=== PATIENT | female | born 1980 | race Caucasian/White ===

== ENCOUNTER 2016-06-24 07:56 | Emergency (ER) | payer OTHER ==
[2016-06-24 08:02] VITALS: BP 121/72; PULSE 95; RESP 19; TEMP 97.8; O2SAT 95
--- NOTE | 2016-06-24 08:12 | EDPHY ---
H & P Stated Complaint: Cough, fever, HERNANDEZ x 4 days Time Seen by Provider: 06/24/16 08:11 HPI/ROS: CHIEF COMPLAINT: Fever, cough, myalgias HISTORY OF PRESENT ILLNESS: The patient presents to the ED with a 2 day history of progressive fever, cough and myalgias. The patient reports a sore throat. She did have nausea and vomiting yesterday. The patient did not get a flu shot this year. The patient denies significant past medical history. She denies any history of diabetes, asthma or immunosuppressive condition. The patient reports her symptoms are moderate in nature REVIEW OF SYSTEMS: A comprehensive 10 point review of systems is otherwise negative aside from elements mentioned in the history of present illness. Source: Patient - Personal History LMP (Females 10-55): 8-14 Days Ago Current Tetanus/Diphtheria Vaccine: Yes Current Tetanus Diphtheria and Acellular Pertussis (TDAP): Yes - Medical/Surgical History Hx Asthma: No Hx Chronic Respiratory Disease: No Hx Diabetes: No Hx Cardiac Disease: No Hx Renal Disease: No Hx Cirrhosis: No Hx Alcoholism: No Hx HIV/AIDS: No Hx Splenectomy or Spleen Trauma: No Other PMH: denies - Social History Smoking Status: Never smoked - Physical Exam Exam: General Appearance: [Alert, no distress] Eyes: [Pupils equal and round no pallor or injection] ENT, Mouth: Minimal pharyngeal erythema Respiratory: [There are no retractions, lungs are clear to auscultation] Cardiovascular: [Regular rate and rhythm] Gastrointestinal: [Abdomen is soft and nontender, no masses, bowel sounds normal] Neurological: [A&O, normal motor function, normal sensory exam, normal cranial nerves] Skin: [Warm and dry, no rashes] Musculoskeletal: [Neck is supple nontender] Extremities: [symmetrical, full range of motion] Constitutional: Initial Vital Signs Temperature (C) 36.6 C 06/24/16 07:59 Heart Rate 95 06/24/16 07:59 Respiratory Rate 19 06/24/16 07:59 Blood Pressure 121/72 H 06/24/16 07:59 O2 Sat (%) 95 06/24/16 07:59 O2 Delivery Mode Room Air Allergies/Adverse Reactions: lamotrigine [From Lamictal] Allergy (Verified 06/14/14 13:56) Home Medications: Medication Instructions Recorded Albuterol [Ventolin Hfa Inhaler] 2 puffs IH QID PRN #1 mdi 06/24/16 Hydrocodone/APAP 5/325 [[place] 1 - 2 each PO Q6 PRN #20 tab 06/24/16 5/325] Ondansetron Odt [Zofran Odt] 4 mg PO Q4PRN PRN #20 tab 06/24/16 Oseltamivir Phosphate [Tamiflu] 75 mg PO BID #10 cap 06/24/16 Medical Decision Making ED Course/Re-evaluation: The patient presents to the ED with a flu-like syndrome. The patient is well- appearing in the ED without evidence of meningitis. Clinically she has no evidence of pneumonia. The patient will be treated presumptively for influenza with Tamiflu, albuterol, Zofran and Maribel as needed for pain. I have instructed the patient to return to the emergency department for any increasing respiratory difficulty, intractable nausea or vomiting, worsening pain or other concerns. Differential Diagnosis: Differential diagnosis considered includes influenza, viral syndrome, otitis media, pneumonia Departure - Departure Disposition: Home, Routine, Self-Care Clinical Impression: Influenza Condition: Good Instructions: Influenza (ED) Additional Instructions: 1. Please take Tamiflu as directed for next 5 days. 2. Albuterol inhaler every 4 hours as needed for cough. 3. Zofran as needed for nausea. 4. Maribel as needed for severe pain 5. Take Ibuprofen or Motrin 600 mg by mouth three times a day. 6. Please return to the ED for markedly worsening symptoms, difficulty breathing , intractable vomiting, worsening pain or headache. Referrals: LIZ ROMO [Primary Care Provider] - As per Instructions
== END 2016-06-24 08:27 | disposition home or self-care (01) ==
DX: J11.1 Influenza due to unidentified influenza virus with other respiratory manifestations (principal)

== ENCOUNTER → 2017-03-03 | Outpatient (CLI) | payer OTHER | LOC: FIMAGING 08:14 | PROVIDERS: ATTEND Internal Medicine | DX: Z12.31 Encounter for screening mammogram for malignant neoplasm of breast (principal); Z80.3 Family history of malignant neoplasm of breast | CPT/HCPCS: G0202 ==

== ENCOUNTER 2018-01-26 17:42 | Emergency (ER) | payer OTHER ==
--- NOTE | 2018-01-26 17:57 | EDPHY ---
H & P Stated Complaint: Hit head 9H [employer], no LOC, stitched, shakey/photophobia Source: Patient Exam Limitations: No limitations - Personal History Current Tetanus/Diphtheria Vaccine: Yes - Medical/Surgical History Hx Asthma: No Hx Chronic Respiratory Disease: No Hx Diabetes: No Hx Cardiac Disease: No Hx Renal Disease: No Hx Cirrhosis: No Hx Alcoholism: No Hx HIV/AIDS: No Hx Splenectomy or Spleen Trauma: No Other PMH: denies - Social History Smoking Status: Never smoked Time Seen by Provider: 01/26/18 17:56 HPI/ROS: HPI: This is a 37-year-old female who presents with Chief Complaint: Hit head 9H [employer], no LOC, stitched, shakey/photophobia Location: Head Quality: Injury Duration: 9 hr prior to arrival Signs and Symptoms: no fever, no nausea, no vomiting, no photophobia, no noise sensitivity, no neck stiffness, no ear pain, no tinnitus, no nasal congestion, no sinus pressure, no weakness, no radiation, no aura Timing: Gradual onset Severity: Moderate Context: Patient reports that her and her are building a new house and they were at the job site this morning when she accidentally ran into an iron pulled that was sticking out of the ground. She sustained a laceration to her left eyebrow that was repaired by a neighbor who is a plastic surgeon. Over several hours she started to slowly develop light sensitivity and a by temporal headache that is nonradiating in nature and described as 6/10. 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 She believes that she may have sustained a concussion and she is concerned she is traveling to [place] on vacation tomorrow. She does have a history of mild concussion in the past. Does not take any blood thinners. Denies loss of consciousness, nausea, vomiting, amnesia, dizziness. Modifying Factors: She has not taking any [id number] pain medications for the headache Comment: ROS: A comprehensive 10 system review of systems is otherwise negative aside from elements mentioned in the history of present illness. MEDICAL/SURGICAL/SOCIAL HISTORY: Medical history: Generally healthy. Does not take any regular medications. Surgical history: Denies Social history: Never smoked. . Family history noncontributory. CONSTITUTIONAL: Extremely polite and cooperative adult white female, awake and alert, no obvious distress HEENT: Band-Aid present over left eyebrow where sutures placed prior to arrival and normocephalic, PERRL, EOMI. Nares patent; no rhinorrhea; no nasal mucosal edema. Tympanic membranes clear. Oropharynx clear, no exudate and moist pink mucosa. Airway patent. No lymphadenopathy. No meningismus. Cardiovascular: Normal S1/S2, regular rate, regular rhythm, without murmur rub or gallop. PULMONARY/CHEST: Symmetrical and nontender. Clear to auscultation bilaterally. Good air movement. No accessory muscle usage. ABDOMEN: Soft, nondistended, nontender, no rebound, no guarding, no peritoneal signs, no masses or organomegaly. No CVAT. EXTREMITIES: 2/2 pulses, strength 5/5, no deformities, no clubbing, no cyanosis or edema. NEUROLOGICAL: no focal neuro deficits. GCS 15. No nystagmus. SKIN: Warm and dry, no erythema. no rash. Good capillary refill. (Kori Jolly) Constitutional: Initial Vital Signs Temperature (C) 36.5 C 01/26/18 17:52 Heart Rate 82 01/26/18 17:52 Respiratory Rate 16 01/26/18 17:52 Blood Pressure 125/80 H 01/26/18 17:52 O2 Sat (%) 100 01/26/18 17:52 O2 Delivery Mode Room Air Allergies/Adverse Reactions: lamotrigine [From Lamictal] Allergy (Unverified 01/26/18 17:52) Home Medications: Medication Instructions Recorded Albuterol [Ventolin Hfa Inhaler] 2 puffs IH QID PRN #1 mdi 06/24/16 Hydrocodone/APAP 5/325 [[place] 1 - 2 each PO Q6 PRN #20 tab 06/24/16 5/325] Ondansetron Odt [Zofran Odt] 4 mg PO Q4PRN PRN #20 tab 06/24/16 Oseltamivir Phosphate [Tamiflu] 75 mg PO BID #10 cap 06/24/16 Azithromycin [Zithromax] 250 mg PO DAILY #6 tab 01/26/18 Ondansetron Odt [Zofran Odt 4 mg 4 mg PO Q4 PRN #12 tab 01/26/18 (*)] Medical Decision Making ED Course/Re-evaluation: Vital signs reviewed and stable upon arrival. Patient is extremely concerned and is requesting a head CT despite nexus protocol not require head CT imaging. Head CT ordered due to patient insistence. Patient given Percocet and Zofran. Patient is exhibiting signs of a concussion. She was referred to the concussion Clinic and given concussion precautions both verbally and written. 1825: Called by radiologist, Dr. Coley, who advised head CT imaging shows no acute intracranial process. + acute maxillary sinusitis. Prescription for Zithromax given patient reports that she has a prescription for Flonase at home already. Patient politely declined prescription for Percocet. This patient was seen under the supervision of my secondary supervising physician. I evaluated care for this patient independently. Discussed this patient with Dr. Diaz. (Kori Jolly) I did not see this patient while she was in the emergency department. However her care was discussed with the PA while the patient was in the department. I agree with treatment plan and management (Dennis Diaz) Differential Diagnosis: Head injury including but not limited to concussion, skull fracture, intraparenchymal contusion, subarachnoid, subdural and epidural hematoma. (Kori Jolly) - Data Points Medications Given: Discontinued Medications Ondansetron HCl (Zofran Odt) 4 mg PO EDNOW ONE Stop: 01/26/18 19:02 Last Admin: 01/26/18 19:04 Dose: 4 mg Departure - Departure Disposition: Home, Routine, Self-Care Clinical Impression: Closed head injury without loss of consciousness, Concussion, Maxillary sinusitis, acute Condition: Good Instructions: Sinusitis (ED), Concussion (ED) Additional Instructions: Please observe concussion precautions. 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 Please follow-up with Dr. Lowe in the concussion Clinic. Take Tylenol 650 mg every 4 hours and/or Ibuprofen 600 mg every 8 hours with food as needed for pain/headache. Take Zofran 1 tab every 4-6 hours as needed for nausea, vomiting. Take Azithromycin as directed until complete. Do not skip a dose. Use Flonase as needed for nasal congestion. Return to the ER immediately if you have progressive headaches, neurologic deficits, gait abnormality, visual disturbance, slurred speech, or any other symptom that concerns you. Referrals: Jordyn Harper MD [Primary Care Provider] - As per Instructions Joy Lowe MD [Medical Doctor] - As per Instructions Prescriptions: Azithromycin [Zithromax] 250 mg PO DAILY #6 tab Ondansetron Odt [Zofran Odt 4 mg (*)] 4 mg PO Q4 PRN #12 tab PRN Reason: Nausea/Vomiting, Use 1st
[2018-01-26] MEDS ORDERED: ONDANSETRON DISINTEGRATING 4 MG TAB ONE (19:00)
[2018-01-26] MEDS ORDERED: ONDANSETRON DISINTEGRATING 4 MG TAB PO ONE (19:01)
[2018-01-26 19:07] VITALS: BP 119/87
== END 2018-01-26 19:08 | disposition home or self-care (01) ==
DX: S06.0X0A Concussion without loss of consciousness, initial encounter (principal); J32.0 Chronic maxillary sinusitis; W22.8XXA Striking against or struck by other objects, initial encounter; Y92.69 Other specified industrial and construction area as the place of occurrence of the external cause

== ENCOUNTER → 2018-03-15 | Outpatient (CLI) | payer OTHER ==
[~2018-03-15] MED LIST: IOPAMIDOL (ISOVUE-300) 100 ML BTL ONE
== END ==
LOC: FIMAGING 08:32
PROVIDERS: ATTEND Internal Medicine
DX: R51 Headache (principal); S09.90XS Unspecified injury of head, sequela
CPT/HCPCS: Q9967

== ENCOUNTER → 2018-10-11 | Outpatient (CLI) | payer OTHER | LOC: FIMAGING 08:53 ==